=== PATIENT | female | born 1980 | race Two or more races ===

== ENCOUNTER 2021-03-20 04:02 | Emergency (ER) | payer OTHER ==
[~2021-03-20] VITALS: Ht 162.6 cm; Wt 67.1 kg
[~2021-03-20 04:02] MED LIST: KLONOPIN0.125 MG/T; PREVACID15 MG
[2021-03-20] MEDS ORDERED: PRILOSEC OTC20 MG PO (04:21)
[2021-03-20] MEDS ORDERED: LEVSIN/SL0.125 MG SL (07:58)
[2021-03-20] MEDS ORDERED: PROTONIX40 MG PO (07:58)
[2021-03-20] MEDS ORDERED: KETO10TA2 PO (07:58)
[2021-03-20] MEDS ORDERED: PEPCID40 MG PO (07:58)
[2021-03-20] MEDS ORDERED: PHAZYME250 MG PO (07:58)
== END 2021-03-20 08:12 | disposition home or self-care (01) ==
LOC: ER 04:02
DX: K21.9 Gastro-esophageal reflux disease without esophagitis (principal); M94.0 Chondrocostal junction syndrome [Tietze]

== ENCOUNTER 2023-03-16 09:00 | Outpatient (CLI) | payer OTHER ==
[~2023-03-16 09:00] MED LIST changes: +KETO10TA2 PO; +LEVSIN/SL0.125 MG SL; +PEPCID40 MG PO; +PHAZYME250 MG PO; +PRILOSEC OTC20 MG PO; +PROTONIX40 MG PO
== END 2023-03-16 09:09 | disposition home or self-care (01) ==
LOC: MAMO-SONO 09:00
PROVIDERS: ATTEND Obstetrics & Gynecology Obstetrics
DX: Z12.31 Encounter for screening mammogram for malignant neoplasm of breast (principal); N63.0 Unspecified lump in unspecified breast; N64.0 Fissure and fistula of nipple; R10.13 Epigastric pain

== ENCOUNTER 2023-07-01 12:32 | Outpatient (CLI) | payer OTHER | END 2023-07-01 12:35 | disposition home or self-care (01) | LOC: NUCLEAR 12:32 | DX: I83.10 Varicose veins of unspecified lower extremity with inflammation (principal) ==

== ENCOUNTER → 2023-08-02 11:54 | Outpatient (CLI) | payer OTHER ==
[2023-08-02 13:02] LABS: MYCOPLASMA PNEUMONIAE IGM NON REACTIVE (NO REACTIVE)
== END | disposition home or self-care (01) ==
LOC: LAB 11:54
DX: J15.7 Pneumonia due to Mycoplasma pneumoniae (principal); R05.9 Cough, unspecified; Z20.822 Contact with and (suspected) exposure to COVID-19; Z88.2 Allergy status to sulfonamides

== ENCOUNTER 2023-09-03 09:23 | Outpatient (CLI) | payer OTHER ==
[2023-09-03 10:55] LABS: PH,URINE 5.5 (5.0-8.0); URINE APPEARANCE Clear; URINE BILIRRUBIN Negative (NEGATIVE); URINE BLOOD Negative; URINE COLOR Yellow; URINE GLUCOSE Negative (NEGATIVE); URINE LEUKOCYTE Negative; URINE NITRATE Negative; URINE PROTEIN Negative (NEGATIVE); URINE UROBILINOGEN 0.2 E.U./dl
[2023-09-03 10:56] LABS: HEMOGLOBIN 12.5 g/dL (12.0-15.00); MEAN CELL VOLUME 85.3 fL (80.00-100.00); MEAN CORPUSCULAR HGB CONC 32.8 g/dl (32.0-36.0); PLATELET COUNT 277 K/uL (150-450); RED BLOOD COUNT 4.45 M/uL (4.00-6.00); RED CELL DISTRIBUTION WIDTH 13.5 % (11.5-14.5)
[2023-09-03 10:59] LABS: URINE BACTERIA 32.7 uL (0.0-1933); URINE EPITHELIAL CELLS 8.3 uL (0.0-38.8); URINE RBC 21.4 uL (0.0-20.8)
[2023-09-03 11:06] LABS: INR < 0.93; PARTIAL THROMBOPLASTIN TIME 26.2 SECONDS (22.0-34.0); PROTHROMBIN TIME 9.8 SECONDS (9.0-11.5)
[2023-09-03 11:39] LABS: ALBUMIN 3.2 gm/dL (3.4-5.0); BILIRUBIN TOTAL 0.23 mg/dL (0.3-1.2); CHOL HDL RATIO 3.2 (0-5.0); CREATININE SERUM 0.68 mg/dL (0.55-1.02); GFR 93.57; GLOBULINA 3.9 G/DL (2.4-3.5); POTASSIUM 4.29 mEq/L (3.5-5.1); TOTAL PROTEIN 7.1 gm/dL (6.4-8.2); TSH 0.775 uIU/mL (0.358-3.74)
[2023-09-03 11:40] LABS: T4 TOTAL 14.63 UG/DL (4.8-13.9)
== END 2023-09-03 09:28 | disposition home or self-care (01) ==
LOC: LAB 09:23
DX: D50.9 Iron deficiency anemia, unspecified (principal); N28.9 Disorder of kidney and ureter, unspecified; D68.2 Hereditary deficiency of other clotting factors; E34.9 Endocrine disorder, unspecified; K75.9 Inflammatory liver disease, unspecified; B20 Human immunodeficiency virus [HIV] disease

== ENCOUNTER 2023-09-03 09:51 | Outpatient (CLI) | payer OTHER | END 2023-09-03 09:54 | disposition home or self-care (01) | LOC: RAD 09:51 | DX: R05.8 Other specified cough (principal) ==

== ENCOUNTER 2024-09-17 17:39 | Emergency (ER) | payer OTHER ==
[~2024-09-17] VITALS: Ht 165.1 cm; Wt 72.1 kg
[2024-09-17] MEDS ORDERED: FAMOTIDINE/PF 20 MG in 0.9 % SODIUM CHLORIDE 8 ML IV PUSH STA (19:05)
[2024-09-17] MEDS ORDERED: KETOROLAC TROMETHAMINE 30 MG VIAL IV ONE (19:15)
[2024-09-17] MEDS ORDERED: ONDANSETRON HCL 2 MG/ML VIAL IV ONE (19:15)
[2024-09-17] MEDS ORDERED: METHYLPREDNISOLONE SOD SUCC 125 MG VIAL IV ONE (19:15)
[2024-09-17 20:02] LABS: HEMATOCRIT 37.6 % (36.0-45.00); HEMOGLOBIN 12.3 g/dL (12.0-15.00); MEAN CELL VOLUME 83.6 fL (80.00-100.00); MEAN CORPUSCULAR HEMOGLOBIN 27.5 pg (27.00-32.0); MEAN CORPUSCULAR HGB CONC 32.9 g/dl (32.0-36.0); PLATELET COUNT 272 K/uL (150-450); RED BLOOD COUNT 4.49 M/uL (4.00-6.00); RED CELL DISTRIBUTION WIDTH 15.7 % (11.5-14.5)
[2024-09-17 20:19] LABS: URINE APPEARANCE Clear; URINE BILIRRUBIN Negative (NEGATIVE); URINE BLOOD Large; URINE COLOR Yellow; URINE GLUCOSE Negative (NEGATIVE); URINE KETONE Negative (NEGATIVE); URINE LEUKOCYTE Trace; URINE NITRATE Negative; URINE PROTEIN 30 (NEGATIVE)
[2024-09-17 20:20] LABS: URINE EPITHELIAL CELLS 37.5 uL (0.0-38.8); URINE WBC 51.6 uL (0.0-23.2)
[2024-09-17 20:24] LABS: URINE CAST 0.15 uL (0.0-1.40)
[2024-09-17 20:35] LABS: ALBUMIN 3.4 gm/dL (3.4-5.0); ALKALINE PHOSPHATASE 70 U/L (50-136); ALT/SGPT 22 U/L (12-78); AMYLASE 65 U/L (25-115); ANION GAP 8 (10.0-20.0); AST/SGOT 17 U/L (15-37); BILIRUBIN,CONJUGATED < 0.10 mg/dL (0.0-0.2); BLOOD UREA NITROGEN 15 mg/dL (7-18); BUN CREA RATIO 21 (7.0-25.0); CALCIUM 8.7 mg/dL (8.5-10.1); CARBON DIOXIDE 27 mEq/L (21-32); CHLORIDE 110 mmol/L (98-107); CREATININE SERUM 0.72 mg/dL (0.55-1.02); GLOBULINA 4.2 G/DL (2.4-3.5); GLUCOSE FASTING 94 mg/dL (65-100); LIPASE 36 U/L (13-75); OSMOLALITY SERUM 284 MOSM/KG (275-295); POTASSIUM 3.07 mEq/L (3.5-5.1); SODIUM 142 mmol/L (136-145); TOTAL PROTEIN 7.6 gm/dL (6.4-8.2)
[2024-09-17] MEDS ORDERED: PEPCID AC20 MG PO (20:51)
[2024-09-17] MEDS ORDERED: LEVSIN/SL0.125 MG SL (20:51)
== END 2024-09-17 21:14 | disposition home or self-care (01) ==
LOC: ER 17:41
PROVIDERS: General Practice
DX: K80.50 Calculus of bile duct without cholangitis or cholecystitis without obstruction (principal); Z88.1 Allergy status to other antibiotic agents; Z88.2 Allergy status to sulfonamides